=== PATIENT | female | born 1990 | race Caucasian/White ===

== ENCOUNTER → 2016-05-02 | Outpatient (CLI) | payer OTHER ==
--- NOTE | 2016-05-02 11:15 | US ---
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 Followed by Pulm for this. . As you know she is a 26 year-old 2, para 1. Her due date is 09/16/16 which is based on L/6. Her current gestation al age based on this dating is 20 weeks 3 days. She was seen previously for the same and normal NIPT/ AFP. Number of fetuses: 1 Placental location: posterior Cord Insertion: Central presentation: transverse head on left Cervix: 3.7 cm MVP: 5.3 cm The adnexa were evaluated. No pathology was seen. Right ovary seen Left ovary not seen, adnexa unremarkable Measurements: Biparietal diameter: 51 mm 21 weeks, 3 days Head circumference: 182 mm 20 weeks, 4 days Abdominal circumference: 164 mm 21 weeks, 4 days Femur length: 34 mm 20 weeks, 5 days Humerus length: 33 mm 21 weeks, 1 days Transcerebellar diameter: 22 mm 20 weeks, 6 days Average ultrasound age: 21 weeks, 1 days Estimated weight: 398 gm weight percentile: 80 % ANATOMY Upper extremities: Normal Lower extremities: Normal Supratentorial brain: Normal Lateral ventricle: 3.9 mm Posterior fossa: Normal Cisterna Magna: 4.9 mm Spine: Normal in cine Nuchal3.1ld: 3.1Normal nose, lip, profile, alveolar ridgear ridge Normal rate, rhythm, axis, 4 chamber view, LVOT, RVOT, IVS normal ductal arch, three-vessel trachea v iew and inflows inflows StNormal Normal Diaphragm: Normal Umbilical cord inseNormal Normal Right kNormal Normal Left kNormal Normal BlNormal Normal Number of cord veThree: Three. Impression: This is a 36 yo at 20 3/7 weeks. 1. SIUP with biometry cw ga of 20 weeks. NL MVP. No anatomic abnormalities noted. LImited aortic arc h view but all other cardiac views were reassuring. 2. Prior - planning repeat 3. Prior immature teratoma- s/p BEP. She reports a plan to see Pulmonary for PFT in May. She is currently doing well with out SOB but did have issues last . Consider preop Anes thesia consult. We are available if any concerns arise but no f/u scheduled. Thank you for allowing me to see your patient. [id number] minutes was spent with the pati15 an d was spent discussing her issues. Yaritza Dacosta MD Diagnosis Division of Maternal Medicine Department of Obstetrics and Gynecology [facility]
--- NOTE | 2016-05-02 18:05 | US ---
Complete Detailed Obstetrical Sonography CLINICAL HISTORY: 26-year-old female with a prior history of an immature teratoma treated with bleom ycin and subsequent pulmonary toxicity presenting for anatomic survey and biometry. TECHNIQUE: A curvilinear 5-megahertz transducer was used to sonographically evaluate the fetus and t he placenta. M-Mode Doppler is used. Dr. Yaritza Dacosta is present. Cine clips are stored on PACS. COMPARISON STUDY: First trimester obstetrical sonography, dated March 06, 2016. LMP: December 11, 2015, indicating an age of 20 weeks, 3 days, and an estimated date of delivery of 2016. FINDINGS: Again, there is a single viable intrauterine gestation. The presentation is transve rse, with head to maternal left. The placenta is posteriorly-situated. There is a three-vessel cord , with a normal central cord insertion. The amniotic fluid volume is appropriate, with a maximal aron tical pocket of 5.3 cm. The heart rate is 149 bpm. The maternal cervix is normal, measured tr ansabdominally at 3.7 cm. The maternal right ovary is identified and appears normal, measuring 2.8 x 1.5 x 2.9 cm, and the maternal left ovary was not identified. The anatomic survey reveals a normal appearance of the supra- and infratentorial structures. T he lateral ventricular diameter is 3.9 mm. The cisterna magna is 4.9 mm, and the nuchal fold is 3.1 mm. The spine appears normal, and was also evaluated with cine clip (A:5 and A:6). The nasola bial anatomy and the alveolar ridge are normal. The sagittal facial profile is normal. There is a f our-chambered heart, with right and left ventricular outflow tracts, interventricular septum, ductal arch, inflow tracts, and a normal three-vessel tracheal view. The diaphragm is intact. The stomach, right and left kidneys, urinary bladder, and the upper and lower extremities appear normal. biometry is as follows: The biparietal diameter is 51 mm, corresponding to an age of 21 weeks, 3 days, +/- 1 week, 6 days, wh ich is at the 82nd percentile. The head circumference is 182 mm, corresponding to an age of 20 weeks, 4 days, +/- 1 week, 4 days, wh ich is at the 48th percentile. The abdominal circumference is 164 mm, corresponding to an age of 21 weeks, 4 days, +/- 2 weeks, 1 da y, which is at the 78th percentile. The femur length is 34 mm, corresponding to an age of 20 weeks, 5 days, +/- 1 week, 6 days, which is at the 51st percentile. The humerus length is 33 mm, corresponding to an age of 21 weeks, 1 day. The transverse cerebellar diameter is 22 mm, corresponding to an age of 20 weeks, 6 days, +/- 1 week, 0 days. The composite gestational age is 21 weeks, 1 day. The estimated weight is 398 gm, +/- 58 gm, which is 14 ounces, +/- 2 ounces, which is at the 80 th percentile. The head circumference to abdominal circumference ratio is normal, measuring 1.11. The femur length to biparietal diameter ratio is normal, measuring 67%. The femur length to abdominal circumference r atio measures 21%. IMPRESSION: There is a single viable intrauterine gestation, with no overt structural anomaly having biometry concordant with menstrual dating and demonstrating appropriate interval growth from a previous study of March 06, 2016. Please also refer to Dr. Dacosta's separate assessments and specific recommendations for follow up. E:birdie
== END ==
LOC: FIMAGING 09:01
PROVIDERS: ATTEND Obstetrics & Gynecology
DX: Z34.92 Encounter for supervision of normal pregnancy, unspecified, second trimester (principal); Z3A.20 20 weeks gestation of pregnancy; C34.90 Malignant neoplasm of unspecified part of unspecified bronchus or lung

== ENCOUNTER → 2016-08-17 | Outpatient (CLI) | payer OTHER | LOC: FIMAGING 08:00 | PROVIDERS: ATTEND Obstetrics & Gynecology | DX: O26.893 Other specified pregnancy related conditions, third trimester (principal) ==

== ENCOUNTER 2016-09-12 07:30 | Inpatient (IN) | payer OTHER ==
[2016-09-12] MEDS ORDERED: CITRIC ACID/SODIUM CITRATE 30 ML UDCUP PO ONE (10:33)
[2016-09-12] MEDS ORDERED: ceFAZolin 2 GM/DEXTROSE 100 ML IV ONE (10:33)
[2016-09-12] MEDS ORDERED: LR 500 ML IV ONE (10:33)
[2016-09-12] MEDS ORDERED: LR 1,000 ML IV SCH (11:00)
[2016-09-12 11:07] LABS: % IMMATURE GRANULYOCYTES 1.1 % (0.0-1.1); ABSOLUTE IMMATURE GRANULOCYTES 0.14 10^3/uL (0.00-0.10); ADD DIFF? NO; ADD MORPH? NO; ADD SCAN? NO; ATYPICAL LYMPHOCYTE FLAG 0 (0-99); FRAGMENT RBC FLAG 0 (0-99); HEMATOCRIT 37.4 % (38.0-47.0); HEMOGLOBIN 12.9 g/dL (12.6-16.3); LEFT SHIFT FLG 0 (0-99); LIPEMIA HEMOLYSIS FLAG 90 (0-99); MEAN CELL HEMOGLOBIN 30.3 pg (27.9-34.1); MEAN CELL HEMOGLOBIN CONCENTR. 34.5 g/dL (32.4-36.7); MEAN CELL VOLUME 87.8 fL (81.5-99.8); MEAN PLATELET VOLUME 9.5 fL (8.7-11.7); PLATELET CLUMPS FLAG 10 (0-99); PLATELET COUNT 223 10^3/uL (150-400); RED BLOOD CELL COUNT 4.26 10^6/uL (4.18-5.33); RED CELL DISTRIBUTION WIDTH 12.9 % (11.5-15.2)
[2016-09-12] MEDS ORDERED: LIDOCAINE 1% 300 MG/30 ML SDV ONE (11:23)
[2016-09-12] MEDS ORDERED: AMMONIA AROMATIC 1 EACH AMP IH ONE (11:24)
[2016-09-12] MEDS ORDERED: MISOPROSTOL 200 MCG TAB ONE (11:24)
[2016-09-12] MEDS ORDERED: TERBUTALINE SULFATE 1 MG/ML VIAL ONE (11:24)
[2016-09-12] MEDS ORDERED: OXYTOCIN 10 UNIT/ML VIAL ONE (11:24)
[2016-09-12] MEDS ORDERED: fentaNYL 100 MCG/2 ML INJ ONE (12:34)
[2016-09-12] MEDS ORDERED: morphINE PF 5 MG/10 ML INJ ONE (12:34)
[2016-09-12] MEDS ORDERED: PHENYLEPHRINE HCL 100 MCG/ML SYR ONE ×2 (13:00→14:01)
[2016-09-12] MEDS ORDERED: OXYTOCIN 100 UNITS/10 ML VIAL ONE (13:00)
[2016-09-12] MEDS ORDERED: ONDANSETRON 4 MG/2 ML VIAL ONE ×2 (13:00)
[2016-09-12] MEDS ORDERED: DEXAMETHASONE 4 MG/ML VIAL ONE ×2 (13:00)
[2016-09-12] MEDS ORDERED: SIMETHICONE 80 MG TAB CHEW PO PRN (14:23)
[2016-09-12] MEDS ORDERED: PROMETHAZINE HCL 25 MG/ML INJ IVP PRN (14:23)
--- NOTE | 2016-09-12 14:26 | OBPROC ---
- Delivery Pre-op Diagnoses: IUP @ 39 3/7, previous section, desired sterility Post-op Diagnoses: IUP @ 39 3/7, previous section, desired sterility Procedure: Repeat Surgeon: Nya Main Business Analysis Consultant: Renetta Segovia Anesthesia: Spinal Complications: Nucal Cord Findings: absent left ovary and fallopian tube, normal uterus, right ovary and fallopian tube, viable female, Specimen(s)/Path: Fallopian Tube(s) EBL: 800 ml - [place] Info A Delivery Date: 09/12/16 Sex of : Female
[2016-09-12] MEDS ORDERED: PHENYLEPHRINE HCL 100 MCG/ML SYR IVP PRN (15:21)
[2016-09-12] MEDS ORDERED: NALOXONE HCL 0.4 MG/ML INJ IVP PRN (15:28)
[2016-09-12] MEDS ORDERED: ONDANSETRON 4 MG/2 ML VIAL IVP PRN (15:28)
--- NOTE | 2016-09-12 15:53 | GOP ---
[f rep st] OPERATIVE REPORT DATE OF OPERATION: 09/12/2016 SURGEON: Nya Interiano MD SUPERVISOR GROUNDS: Renetta Segovia MD ANESTHESIA: Spinal. PREOPERATIVE DIAGNOSIS: Intrauterine at 39-3/7 weeks' gestation with previous section. Desires repeat section and desires sterilization. POSTOPERATIVE DIAGNOSIS: Intrauterine at 39-3/7 weeks' gestation with previous section. Desires repeat section and desires sterilization. PROCEDURE PERFORMED: Repeat low transverse section. FINDINGS: Normal uterus, right fallopian tube, right ovary. Absent left ovary and left fallopian tube. Viable female infant in vertex presentation with meconium-stained fluid and nuchal cord x1. SPECIMENS: Right fallopian tube. ESTIMATED BLOOD LOSS: 100 mL. COMPLICATIONS: None. HISTORY OF PRESENT ILLNESS: The patient is a 26-year-old female who presents at 39-3/7 weeks' gestation for repeat section and sterilization. DESCRIPTION OF PROCEDURE: The patient was taken to the operating room where she was prepped and draped in normal sterile fashion in the dorsal supine position with a leftward tilt. A surgical timeout was performed, verifying the patient's name, date of , planned procedure, and site. The patient received 2 g of Ancef preoperatively. A Pfannenstiel skin incision was made with a scalpel and carried through to the underlying fascia. The fascia was incised in the midline and extended laterally. The superior aspect of the fascia was grasped with a Sea clamp, and the rectus muscles dissected off bluntly and with the Bovie cautery and Turcios scissors. Inferior aspect of the fascia was grasped with Sea clamps. The rectus muscle was dissected off bluntly and with the Turcios scissors. The peritoneum was identified and entered bluntly. The peritoneum was divided. And the vesicouterine peritoneum was incised with the Metzenbaum scissors, and a bladder flap was created digitally. The bladder blade was replaced. The uterus was incised. The uterine incision was extended laterally bluntly. The infant was delivered via vacuum suction. The cord was clamped and cut. Cord blood was obtained. The infant was handed to a nurse practitioner. The placenta was delivered spontaneously, and the uterus was exteriorized and cleared of all clots and debris. The uterine incision was reapproximated with one layer of 0 Monocryl. The left ovary and left fallopian tube were absent. The right fallopian tube was grasped with the Humble clamps. Two windows in the mesosalpinx were made, and the mesosalpinx was clamped, cut, and tied in 3 segments to remove the entire right fallopian tube. The ends were noted to be hemostatic. The uterus was returned to the abdomen. The gutters were cleared of all clots and debris. The uterine incision was reinspected and noted to be hemostatic. The subfascial spaces were inspected and noted to be hemostatic, and the fascia was reapproximated with 0 Vicryl. The subcutaneous tissue was irrigated and closed with 3-0 Vicryl, and the skin was closed with 4-0 Monocryl. All counts were correct x2. /[id number]/MODL MTDD
--- NOTE | 2016-09-12 15:56 | POSTANESTH ---
Post Anesthetic Evaluation Cardiovascular Status: Normal, Stable Respiratory Status: Normal, Stable, Similar to Pre-op Cond. Level of Consciousness/Mental Status: Can Participate in Eval, Alert and Oriented (Tolerated spinal well, BP treated, comfortable for surgery, to PACU, no pain or nausea.) Pain Control: Adequate, Prn Tx Ordered Nausea/Vomiting Control: Adequate, Prn Tx Ordered Complications Possibly Related to Anesthesia: None Noted
--- NOTE | 2016-09-12 16:01 | PREANESOB ---
Obstetric Pre-Anesthesia Info - General Info Proposed Procedure: Repeat C Section. : 2 Para: 1 WBD: 39 - Info Status: Full Term Monitors: External FHR Baseline (bpm): 140 FHR Pattern: Reassuring - Labor Status Indications for Current Section: Elective/Repeat Labor Epidural: No Anesthesia ROS: Previous epidural for labor and C Section, S/P spinals with abdominal surgery for ovarian CA. S/P chemotherapy with bleomycin. Allergies/Adverse Reactions: Allergy/AdvReac Type Severity Reaction Status Date / Time bleomycin Allergy Verified 09/12/16 10:31 Home Medications: Medication Instructions Recorded Vit27&Calcium/Iron/FA 1 tab 09/12/16 [] Visit Medications: Generic Name Dose Route Start Last Admin Trade Name Freq PRN Reason Stop Dose Admin Hydrocodone Bitart/Acetaminophen 1 - 2 tab 09/12/16 14:23 [place] 5/325 PO 09/22/16 14:22 Q4HRS PRN Pain, Moderate Diphenhydramine HCl 25 - 50 mg 09/12/16 15:28 Benadryl Injection IVP 03/11/17 15:27 Q6HRS PRN Itching Docusate Sodium 100 mg 09/12/16 14:23 Colace PO 03/11/17 14:22 BID PRN Constipation Lactated Ringer's 1,000 mls @ 125 mls/hr 09/12/16 11:00 Lr IV 03/11/17 10:59 CONT YUAN Ketorolac Tromethamine 30 mg 09/12/16 18:00 Toradol IVP 09/13/16 12:01 Q6HRS YUAN Naloxone HCl 0.4 mg 09/12/16 15:28 Narcan IVP 09/13/16 15:29 PRN PRN respiratory depression Ondansetron HCl 4 mg 09/12/16 15:28 Zofran IVP 03/11/17 15:27 Q4HRS PRN Nausea/Vomiting, Can't Take PO Phenylephrine HCl 100 mcg 09/12/16 15:21 Drew-Synephrine IVP 09/12/16 16:21 Q1M PRN Hypotension Promethazine HCl 25 mg 09/12/16 14:23 Phenergan IVP 03/11/17 14:22 Q6HRS PRN Nausea/Vomiting, Use 1st Simethicone 80 mg 09/12/16 14:23 Mylicon PO 03/11/17 14:22 .TIDMEALS AND HS PRN Gas Discontinued Medications Generic Name Dose Route Start Last Admin Trade Name John PRN Reason Stop Dose Admin Ammonia (Aromatic Spirit) Confirm 09/12/16 11:24 Ammonia Aromatic Administered 09/12/16 11:25 Dose 1 each IH .STK-MED ONE Citric Acid/Sodium Citrate 30 ml 09/12/16 10:33 Bicitra PO 09/12/16 10:34 ONCALL ONE Dexamethasone Confirm 09/12/16 13:00 Decadron Injection Administered 09/12/16 13:01 Dose 4 mg .ROUTE .STK-MED ONE Dexamethasone Confirm 09/12/16 13:00 Decadron Injection Administered 09/12/16 13:01 Dose 4 mg .ROUTE .STK-MED ONE Ephedrine Sulfate Confirm 09/12/16 11:24 Ephedrine Sulfate Administered 09/12/16 11:25 Dose 50 mg .ROUTE .STK-MED ONE Fentanyl Confirm 09/12/16 12:34 Sublimaze Administered 09/12/16 12:35 Dose 100 mcg .ROUTE .STK-MED ONE Cefazolin Sodium/Dextrose 100 mls @ 200 mls/hr 09/12/16 10:33 09/12/16 12:32 Ancef 2 Gm (Premix) IV 09/12/16 11:02 100 mls ONCALL ONE Administration Protocol Lactated Ringer's 500 mls @ 0 mls/hr 09/12/16 10:33 Lr IV 09/12/16 10:34 ONCE ONE As Directed Lidocaine HCl Confirm 09/12/16 11:23 Lidocaine Hcl 1% Administered 09/12/16 11:24 Dose 300 mg .ROUTE .STK-MED ONE Misoprostol Confirm 09/12/16 11:24 Cytotec Administered 09/12/16 11:25 Dose 800 mcg .ROUTE .STK-MED ONE Morphine Sulfate Confirm 09/12/16 12:34 Morphine Pf 5 Mg/10 Ml Administered 09/12/16 12:35 Dose 5 mg .ROUTE .STK-MED ONE Ondansetron HCl Confirm 09/12/16 13:00 Zofran Administered 09/12/16 13:01 Dose 4 mg .ROUTE .STK-MED ONE Ondansetron HCl Confirm 09/12/16 13:00 Zofran Administered 09/12/16 13:01 Dose 4 mg .ROUTE .STK-MED ONE Oxytocin Confirm 09/12/16 11:24 Pitocin Administered 09/12/16 11:25 Dose 40 unit .ROUTE .STK-MED ONE Oxytocin Confirm 09/12/16 13:00 Pitocin Administered 09/12/16 13:01 Dose 100 units .ROUTE .STK-MED ONE Phenylephrine HCl Confirm 09/12/16 13:00 Drew-Synephrine Administered 09/12/16 13:01 Dose 1,000 mcg .ROUTE .STK-MED ONE Phenylephrine HCl Confirm 09/12/16 14:01 Drew-Synephrine Administered 09/12/16 14:02 Dose 1,000 mcg .ROUTE .STK-MED ONE Terbutaline Sulfate Confirm 09/12/16 11:24 [place] Administered 09/12/16 11:25 Dose 1 mg .ROUTE .STK-MED ONE - Anesthesia History Response to Local Anesthetics: Normal Anesthesia & Operative History: No Prior Problems Family Anesthesia History: Negative - Social History Substance Use/Abuse: Denies - Focused Exam Blood Pressure: 131/66 Heart Rate: 111 Respiratory Rate: 18 Height/Weight (Nursing): Height 162.56 cm Weight 89.811 kg Physical Exam: Within normal limits. ASA Status: II Labs: 09/12/16 10:58 Patient ABO/Rh B POSITIVE 09/12/16 10:58 - Plan Anesthetic Plan: SAB Consent Signed and on Chart: Yes Patient/Guardian Understands and Agrees to Plan: Yes
[2016-09-13] MEDS: KETOROLAC 30 MG/1 ML SDV IVP SCH ×4 (00:02→12:38)
--- NOTE | 2016-09-13 08:38 | SOAPPROG ---
SOAP Progress Note Assessment/Plan: Assessment: POD#1 s/p rLTCS and R salpingectomy (H/o LSO) Recovering well Rh pos, Rub imm Plan: Routine post-op care BF Ambulation D/C mike Oral pain meds Discussed home POD#2-3, they will decide 09/13/16 08:37 Subjective: Feels well. Pain under good control. Mike in place. Tolerating regular diet. ambulated last night. Working on BF, last time milk never came in Objective: Vital Signs Temp Pulse Resp BP Pulse Ox 35.9 C L 64 18 100/64 97 09/13/16 05:59 09/13/16 05:59 09/13/16 04:00 09/13/16 05:59 09/13/16 05:59 09/12/16 09/13/16 09/14/16 05:59 05:59 05:59 Intake Total 3650 Output Total 2300 Balance 1350 Gen: NAD Resp: clear bilaterally CV: RRR Abd: soft, non distended, appropriately tender Incision: bandage clean/dry/intact Ext: SCDs in place ICD10 Worksheet Patient Problems: Problems Problem Status Onset delivery delivered Acute - ICD10 Problem Qualifiers (1) delivery delivered
[2016-09-13] MEDS: DOCUSATE SODIUM 100 MG CAP PO PRN (09:34)
[2016-09-13] MEDS: IBUPROFEN 600 MG TAB PO PRN (18:52)
[2016-09-13] MEDS: HYDROCODONE/APAP 5/325 TAB PO PRN ×2 (18:53→22:59)
[2016-09-13 20:10] VITALS: RESP 16
[2016-09-14] MEDS: IBUPROFEN 600 MG TAB PO PRN ×4 (02:56→21:29)
[2016-09-14] MEDS: HYDROCODONE/APAP 5/325 TAB PO PRN (02:58)
[2016-09-14] MEDS: DOCUSATE SODIUM 100 MG CAP PO PRN ×2 (08:56→21:29)
--- NOTE | 2016-09-14 08:58 | SOAPPROG ---
SOAP Progress Note Assessment/Plan: Assessment: 26 y.o. s/p repeat C/S POD #2. Recovering well with good pain control. Incision CDI. Breast and bottlefeeding. Plan: Routine care. consult PRN. Anticipate discharge to home tomorrow. 09/14/16 08:56 Subjective: Reports feeling well with good pain control and minimal vaginal bleeding. Incision CDI and healing well. Breast and bottlefeeding infant. Eating and drinking well without n/v. Ambulating without vertigo. Appropriate mood with good support system. Objective: Vital Signs Temp Pulse Resp BP Pulse Ox 36.4 C 87 16 107/64 97 09/13/16 20:09 09/13/16 20:09 09/13/16 20:09 09/13/16 20:09 09/13/16 20:09 Laboratory Results 09/13/16 07:20 09/13/16 09/14/16 09/15/16 05:59 05:59 05:59 Intake Total 3650 1000 Output Total 2300 2300 Balance 1350 -1300 - Time Spent With Patient Time Spent With Patient: 20 minutes - Pending Discharge Pending Discharge Within 24 Hours: Yes Pending Discharge Date: 09/15/16 Pending Discharge Time: 11:00 Physical Exam - Physical Exam General Appearance: WD/WN, alert, no apparent distress EENT: normal ENT inspection Neck: non-tender, full range of motion, normal inspection Respiratory: lungs clear, normal breath sounds Cardiac/Chest: regular rate, rhythm Abdomen: non-tender, soft Pelvic Exam: normal external exam Rectal: deferred Back: Normal inspection Skin: normal color, warm/dry Extremities: non-tender, normal inspection Neuro/Psych: alert, normal mood/affect, oriented x 3 ICD10 Worksheet Patient Problems: Problems Problem Status Onset delivery delivered Acute
[2016-09-15] MEDS: IBUPROFEN 600 MG TAB PO PRN ×2 (04:04→10:40)
--- NOTE | 2016-09-15 08:36 | OBGCSDC ---
General Delivery Information - General Info : 2 Para: 2 Delivery Physician/CNM: Nya Main Inspector Ball Points: Renetta Segovia Admission Date: 09/12/16 Labs: Patient ABO/Rh B POSITIVE 09/12/16 10:58 Hct 34.3 % (38.0-47.0) L 09/13/16 07:20 Vaginal - Operations/Procedures L&D Analgesia/Anesthesia Type: Spinal - Delivery Number of Prior Sections: 1 Indications for Prior Section: Arrest of Dilation Indications for Current Section: Elective/Repeat Type: Repeat Surgical Procedures: Low Transverse, Tubal Ligation Intra-op Complications: None EBL: 800 L&D Analgesia/Anesthesia Type: Spinal Data [place] Delivery Date: 09/12/16 Delivery Time: 13:22 SUHAIL: 09/16/16 Gestational Age: 39 week(s) and 6 day(s) Sex of Infant: Female Weight (gm): 3214 g Score (1 Min): 8 Score (5 Min): 8 Discharge Information - Discharge Information Discharge Medications: Ibuprofen, Oxycodone, Vitamins Condition: Good Instruction/Follow Up: Two Weeks, Six Weeks Discharge Physician/CNM: Vera Greene
[2016-09-15 09:59] VITALS: BP 109/67; PULSE 77; TEMP 98.7; O2SAT 98
== END 2016-09-15 12:25 | disposition home or self-care (01) | DRG 766 ==
LOC: FLD 09:53 → FOB 16:53
PROVIDERS: ADMIT Obstetrics & Gynecology; ATTEND Obstetrics & Gynecology
PROC: 0UT50ZZ Resection of Right Fallopian Tube, Open Approach (ICD-10-PCS; principal; 2016-09-12)
PROC: 10D00Z1 Extraction of Products of Conception, Low, Open Approach (ICD-10-PCS; principal; 2016-09-12)
DX: O34.219 Maternal care for unspecified type scar from previous cesarean delivery (principal); O69.82X0 Labor and delivery complicated by other cord entanglement, without compression, not applicable or unspecified; Z30.2 Encounter for sterilization
CPT/HCPCS: J0690; J1100; J1885; J2274; J2370; J2405; J2550; J2590; J3010; J3105

== ENCOUNTER → 2017-09-20 | Outpatient (CLI) | payer OTHER | LOC: BMCIMAGING 08:05 | PROVIDERS: ATTEND Obstetrics & Gynecology | DX: D25.1 Intramural leiomyoma of uterus (principal); Z90.721 Acquired absence of ovaries, unilateral ==